=== PATIENT | female | born 1990 ===

== ENCOUNTER 2018-01-11 16:04 | Emergency (ER) | payer SELFPAY ==
[2018-01-11 16:24] VITALS: BP 129/83; PULSE 87; RESP 16; TEMP 98; O2SAT 99
--- NOTE | 2018-01-11 16:51 | ED PDOC ---
HPI: General Adult Time Seen by Provider: 01/11/18 16:13 Chief Complaint (Nursing): ENT Problem Chief Complaint (Provider): ENT Problem History Per: Patient History/Exam Limitations: no limitations Onset/Duration Of Symptoms: Days Current Symptoms Are (Timing): Still Present Additional Complaint(s): 27 year old female presents to the emergency department with a complaint of having a "clogged" sensation to both ears for about 3 weeks. Associated with intermittent pain and feeling in/out of hearing. States it is hard to hear provider in the emergency department. Reports using debrox without relief. denies any further medical complaints. Past Medical History Reviewed: Historical Data, Nursing Documentation, Vital Signs Vital Signs: Last Vital Signs Temp 98.0 F 01/11/18 16:22 Pulse 87 01/11/18 16:22 Resp 16 01/11/18 16:22 BP 129/83 01/11/18 16:22 Pulse Ox 99 01/11/18 16:22 - Medical History PMH: Arthritis, Asthma - Surgical History Surgical History: No Surg Hx - Family History Family History: States: Unknown Family Hx - Social History Current smoker - smoking cessation education provided: No Alcohol: None Drugs: Denies - Home Medications Home Medications: Ambulatory Orders Medication Instructions Recorded Oxycodone HCl/Acetaminophen 1 tab PO Q6H PRN #15 tab 04/21/15 [Percocet 325 mg-5 mg] Carbamide Peroxide [Debrox Ear 10 drop .ROUTE BID #1 bottle 01/11/18 Drops] - Allergies Allergies/Adverse Reactions: Allergies Allergy/AdvReac Type Severity Reaction Status Date / Time No Known Allergies Allergy Verified 04/21/15 10:41 Review of Systems ROS Statement: Except As Marked, All Systems Reviewed And Found Negative ENT: Positive for: Ear Pain (intermittenly), Other ("Clogged" sensation to both ears. ) Physical Exam - Reviewed Nursing Documentation Reviewed: Yes Vital Signs Reviewed: Yes - Physical Exam Appears: Positive for: Well, Non-toxic, No Acute Distress Head Exam: Positive for: ATRAUMATIC, NORMAL INSPECTION, NORMOCEPHALIC Skin: Positive for: Normal Color, Warm, Dry Eye Exam: Positive for: Normal appearance, EOMI ENT: Positive for: Normal ENT Inspection ( No pain to the pinna or tragus region when touched. ), Other (Ear canals bilaterally are intact. Wax noted in both ears. ) Respiratory: Negative for: Accessory Muscle Use, Respiratory Distress Neurologic/Psych: Positive for: Alert, Oriented (x3) - ECG O2 Sat by Pulse Oximetry: 99 (RA) Pulse Ox Interpretation: Normal Medical Decision Making Medical Decision Making: Time: 1630 Initial impression: Ear pain Initial plan: Evaluation of the ear Time 1650 Advised to use hydrogen peroxide and debrox to rinse out the ears. Advised to follow up with ENT specialist. If worsens return to the ED. Medically clear for discharge and given Rx for Debrox Ear Drops. Referred to Dr. Javi Powell MD. Clinical Impression: Excessive Cerumen in ear canal Scribe Attestation: Documented by Mary Curran, acting as a scribe for Tata Kern PA-C. Provider Scribe Attestation: All medical record entries made by the Scribe were at my direction and personally dictated by me. I have reviewed the chart and agree that the record accurately reflects my personal performance of the history, physical exam, medical decision making, and the department course for this patient. I have also personally directed, reviewed, and agree with the discharge instructions and disposition. Disposition - Clinical Impression Clinical Impression: Excessive cerumen in ear canal - Patient ED Disposition Is Patient to be Admitted: No Counseled Patient/Family Regarding: Diagnosis, Need For Followup, Rx Given - Disposition Referrals: Javi Powell MD [Staff Provider] - Disposition: Routine/Home Disposition Time: 16:50 Condition: STABLE Prescriptions: Carbamide Peroxide [Debrox Ear Drops] 10 drop .ROUTE BID #1 bottle Instructions: Ear Wax Impaction Forms: [employer] ([place])
== END 2018-01-11 17:09 | disposition home or self-care (01) ==
LOC: H.ER 16:04
DX: H61.23 Impacted cerumen, bilateral (principal)